=== PATIENT | male | born 1945 | race Caucasian/White ===

== ENCOUNTER 2021-01-11 11:02 | Inpatient (IN) ==
[2021-01-11] MEDS ORDERED: Isovue-370 500 ML BOTTLE IVP ONE (11:16)
[2021-01-11 11:32] LABS: Hematocrit 38.3 % (37.5-50.1); Mean Corpuscular HGB Conc 33.9 g/dL (31.6-35.5); Mean Corpuscular Volume 106.1 fL (83.0-100.0); Red Blood Count 3.61 M/mcL (4.19-5.50); Red Cell Distribution Width 12.4 % (11.5-14.5)
[2021-01-11 11:34] LABS: Immature Platelets 1.4 % (1.1-6.1); Mean Platelet Volume 8.9 fL (9.4-12.4); White Blood Count 2.8 K/mcL (4.3-11.1)
[2021-01-11 11:38] LABS: INR 1.2; Prothrombin Time 13.5 Seconds (9.4-12.1)
[2021-01-11 11:41] LABS: Activated Partial Thrombo Time 34.5 Seconds (26.0-36.0)
[2021-01-11 11:49] LABS: BUN/Creatinine Ratio 31 (6-26); Blood Urea Nitrogen 29 mg/dL (8-23); Calcium 9.7 mg/dL (8.6-10.3); Carbon Dioxide 30 mEq/L (23-29); Chloride 107 mEq/L (98-107); Glucose 187 mg/dL (70-105); Osmolality,Calculated 307 (280-300); Potassium 4.7 mEq/L (3.5-5.1); Sodium 143 mEq/L (136-145); eGFR For African Americans > 60 (> 60); eGFR For Non-African Americans > 60 (> 60)
[2021-01-11] MEDS ORDERED: Gadolinium Contrast Agent (WT Based) IV PRN (11:49)
[2021-01-11 11:50] LABS: Troponin I < 0.03 ng/mL (< 0.04)
[2021-01-11 12:07] LABS: Alanine Aminotransferase 24 Units/L (7-52); Albumin 3.8 g/dL (3.5-5.7); Albumin/Globulin Ratio 1.5 (1.1-2.2); Alkaline Phosphatase 135 Units/L (34-104); Aspartate Amino Transferase 30 Units/L (13-39); Bilirubin,Direct 0.3 mg/dL (0.0-0.2); Bilirubin,Indirect 0.8 mg/dL (0.0-1.0); Bilirubin,Total 1.1 mg/dL (0.3-1.0); Globulin 2.5 g/dL (2.4-3.5); Total Protein 6.3 g/dL (6.4-8.9)
[2021-01-11] MEDS ORDERED: GADOBUTROL 30 MMOL/30 ML VIAL IVP ONE (12:26)
[2021-01-11] MEDS ORDERED: Lactulose Oral Soln 20 GM/30 ML UDC PO ONE (13:10)
[2021-01-11] MEDS ORDERED: Perflutren Lipid Microsphere 1.3 ML in 0.9 % Sodium Chloride 8.7 ML IVP PRN (13:58)
[2021-01-11 14:40] LABS: Bilirubin,Urine Negative (Negative); Blood,Urine Negative (Negative); Clarity,Urine Clear (Clear); Color,Urine Yellow (Yellow); Glucose,Urine (UA) 70 mg/dL (Normal); Ketones,Urine Negative (Negative); Leukocyte Esterase,Urine Negative (Negative); Mucus,Urine Few per lpf (None-Few); Nitrite,Urine Negative (Negative); Protein,Urine Negative (Neg-Trace); RBC,Urine 0-3 per hpf (0-3); Renal Epithelial Cells,Urine Few per hpf (None-Few); Specific Gravity,Urine 1.025 (1.010-1.025); Squamous Epithelial Cell,Urine Few per hpf (None-Few); Transitional Epi Cells,Urine Few per hpf (None-Few); WBC,Urine 0-3 per hpf (0-3)
[2021-01-11] MEDS ORDERED: Naloxone 0.4 MG/ML INJ IVP PRN (14:51)
[2021-01-11] MEDS ORDERED: Ondansetron 4 MG/2 ML VIAL IVP PRN (14:51)
[2021-01-11] MEDS ORDERED: D5% in Water 1,000 ML IVC PRN (14:53)
[2021-01-11] MEDS ORDERED: Dextrose Gel 15 GM/37.5 ML TUBE PO PRN ×2 (14:53)
[2021-01-11] MEDS ORDERED: *HR* Dextrose 50 % in Water (Syg) 50 ML SYRINGE IVP PRN (14:53)
[2021-01-11] MEDS ORDERED: Ipratropium/Albuterol Neb 3 ML IH PRN (14:54)
[2021-01-11 15:06] LABS: Amphetamine Screen,Urine Negative ng/mL (Cutoff=1000); Barbiturate Screen,Urine Negative ng/mL (Cutoff=200); Benzodiazepines Screen,Urine Negative ng/mL (Cutoff=200); Cannabinoid Screen,Urine Positive ng/mL (Cutoff = 50); Cocaine Screen,Urine Negative ng/mL (Cutoff= 300); Opiate Screen,Urine Negative ng/mL (Cutoff=300); Phencyclidine Screen,Urine Negative ng/mL (Cutoff=25)
[2021-01-11] MEDS ORDERED: *HR* Labetalol 20 MG/4 ML SYRINGE IVP PRN (15:16)
[2021-01-11] MEDS ORDERED: Lactulose 200 GM, Sodium Chloride IRRigation 700 ML RC ONE ×2 (16:00→21:00)
[2021-01-11] MEDS: Insulin LISPRO 300 UNITS/3 ML VIAL SUBQ SCH (17:33)
[2021-01-11 18:32] LABS: Ethanol < 10 mg/dL (Less than 10); Troponin I < 0.03 ng/mL (< 0.04)
[2021-01-12] MEDS ORDERED: Lactulose Oral Soln 20 GM/30 ML UDC PO ONE ×2 (00:30→01:30)
[2021-01-12] MEDS: Insulin LISPRO 300 UNITS/3 ML VIAL SUBQ SCH ×5 (00:34→21:42)
[2021-01-12 00:52] LABS: Basophils % 0.3 %; Hemoglobin 12.2 g/dL (12.9-16.9); Immature Granulocytes % 0.3 % (0-4); Mean Corpuscular Volume 104.8 fL (83.0-100.0)
[2021-01-12 00:53] LABS: Eosinophils # 0.1 K/mcL (0.0-0.6); Eosinophils % 2.1 %; Hematocrit 35.1 % (37.5-50.1); Lymphocytes % 24.9 %; Mean Corpuscular HGB Conc 34.8 g/dL (31.6-35.5); Mean Corpuscular Hemoglobin 36.4 pg (28.0-33.3); Mean Platelet Volume 8.7 fL (9.4-12.4); Monocytes # 0.3 K/mcL (0.0-1.3); Monocytes % 8.6 %; Neutrophils # 2.2 K/mcL (1.6-8.9); Platelet Count 101 K/mcL (140-400); Red Blood Count 3.35 M/mcL (4.19-5.50); Red Cell Distribution Width 12.4 % (11.5-14.5); Segmented Neutrophils % 63.8 %; White Blood Count 3.4 K/mcL (4.3-11.1)
[2021-01-12 00:55] LABS: Lymphocytes # 0.9 K/mcL (0.6-4.6)
[2021-01-12 00:59] LABS: INR 1.2; Prothrombin Time 13.7 Seconds (9.4-12.1)
[2021-01-12 01:17] LABS: Alanine Aminotransferase 23 Units/L (7-52); Albumin 3.2 g/dL (3.5-5.7); Albumin/Globulin Ratio 1.5 (1.1-2.2); Alkaline Phosphatase 110 Units/L (34-104); Aspartate Amino Transferase 33 Units/L (13-39); BUN/Creatinine Ratio 31 (6-26); Bilirubin,Direct 0.4 mg/dL (0.0-0.2); Bilirubin,Indirect 1.2 mg/dL (0.0-1.0); Bilirubin,Total 1.6 mg/dL (0.3-1.0); Blood Urea Nitrogen 23 mg/dL (8-23); Calcium 8.9 mg/dL (8.6-10.3); Carbon Dioxide 26 mEq/L (23-29); Chloride 107 mEq/L (98-107); Chol/HDL Ratio 2.2 (0-4.9); Cholesterol 103 mg/dL (< 200); Globulin 2.2 g/dL (2.4-3.5); Glucose 134 mg/dL (70-105); HDL Cholesterol 46 mg/dL (40-59); LDL Cholesterol,Calculated 45 mg/dL (< 100); Magnesium 1.7 mg/dL (1.6-2.6); Osmolality,Calculated 298 (280-300); Potassium 3.9 mEq/L (3.5-5.1); Sodium 141 mEq/L (136-145); Total Protein 5.4 g/dL (6.4-8.9); Triglycerides 62 mg/dL (< 150); eGFR For African Americans > 60 (> 60); eGFR For Non-African Americans > 60 (> 60)
[2021-01-12 01:24] LABS: Estimated Average Glucose 128 mg/dl; Hemoglobin A1C 6.1 %
[2021-01-12 01:29] LABS: Thyroid Stimulating Hormone 1.416 mcIU/mL (0.340-5.600)
[2021-01-12] MEDS ORDERED: Lactulose Oral Soln 20 GM/30 ML UDC PO SCH ×2 (09:00→21:00)
[2021-01-12] MEDS: Aspirin Enteric Coated 81 MG Tablet PO SCH (10:28)
[2021-01-12] MEDS: Lactulose Oral Soln 20 GM/30 ML UDC PO SCH ×2 (14:46→21:43)
[2021-01-12] MEDS: Budesonide/Formoterol 80/4.5 1 PUFF INH IH SCH (21:06)
[2021-01-12] MEDS: hydrOXYzine pamoate 25 MG CAPSULE PO PRN (23:15)
[2021-01-12] MEDS: Baclofen 10 MG TABLET PO SCH (23:15)
[2021-01-13 01:46] LABS: Basophils % 0.3 %; Immature Granulocytes % 0.3 % (0-4); Mean Platelet Volume 8.7 fL (9.4-12.4)
[2021-01-13 01:48] LABS: Eosinophils # 0.1 K/mcL (0.0-0.6); Eosinophils % 1.8 %; Hematocrit 33.7 % (37.5-50.1); Hemoglobin 11.7 g/dL (12.9-16.9); Immature Platelets 1.1 % (1.1-6.1); Lymphocytes # 0.9 K/mcL (0.6-4.6); Lymphocytes % 27.4 %; Mean Corpuscular HGB Conc 34.7 g/dL (31.6-35.5); Mean Corpuscular Hemoglobin 36.6 pg (28.0-33.3); Mean Corpuscular Volume 105.3 fL (83.0-100.0); Monocytes # 0.3 K/mcL (0.0-1.3); Monocytes % 10.3 %; Red Cell Distribution Width 12.2 % (11.5-14.5); Segmented Neutrophils % 59.9 %; White Blood Count 3.3 K/mcL (4.3-11.1)
[2021-01-13 01:52] LABS: Platelet Count 99 K/mcL (140-400)
[2021-01-13 02:03] LABS: Alanine Aminotransferase 22 Units/L (7-52); Albumin/Globulin Ratio 1.4 (1.1-2.2); Alkaline Phosphatase 121 Units/L (34-104); Aspartate Amino Transferase 33 Units/L (13-39); BUN/Creatinine Ratio 30 (6-26); Bilirubin,Direct 0.2 mg/dL (0.0-0.2); Bilirubin,Indirect 0.8 mg/dL (0.0-1.0); Blood Urea Nitrogen 26 mg/dL (8-23); Calcium 8.9 mg/dL (8.6-10.3); Carbon Dioxide 24 mEq/L (23-29); Chloride 107 mEq/L (98-107); Globulin 2.2 g/dL (2.4-3.5); Glucose 219 mg/dL (70-105); Magnesium 1.7 mg/dL (1.6-2.6); Osmolality,Calculated 297 (280-300); Sodium 138 mEq/L (136-145); Total Protein 5.2 g/dL (6.4-8.9); eGFR For African Americans > 60 (> 60); eGFR For Non-African Americans > 60 (> 60)
[2021-01-13 02:54] LABS: Troponin I < 0.03 ng/mL (< 0.04)
[2021-01-13] MEDS ORDERED: Lactulose 200 GM, Sodium Chloride IRRigation 700 ML RC ONE (07:35)
[2021-01-13] MEDS: Aspirin Enteric Coated 81 MG Tablet PO SCH (07:46)
[2021-01-13] MEDS: Insulin LISPRO 300 UNITS/3 ML VIAL SUBQ SCH ×4 (07:46→20:42)
[2021-01-13] MEDS: Folic Acid 1 MG TABLET PO SCH (07:47)
[2021-01-13] MEDS: Budesonide/Formoterol 80/4.5 1 PUFF INH IH SCH ×2 (07:58→20:47)
[2021-01-13] MEDS: Lactulose Oral Soln 20 GM/30 ML UDC PO SCH ×2 (17:07→20:41)
[2021-01-13] MEDS: Baclofen 10 MG TABLET PO SCH (20:41)
[2021-01-13] MEDS: hydrOXYzine pamoate 25 MG CAPSULE PO PRN (23:45)
[2021-01-14 04:34] LABS: Alanine Aminotransferase 23 Units/L (7-52); Albumin 2.9 g/dL (3.5-5.7); Albumin/Globulin Ratio 1.3 (1.1-2.2); Alkaline Phosphatase 128 Units/L (34-104); Aspartate Amino Transferase 30 Units/L (13-39); BUN/Creatinine Ratio 22 (6-26); Bilirubin,Direct 0.2 mg/dL (0.0-0.2); Bilirubin,Indirect 0.7 mg/dL (0.0-1.0); Bilirubin,Total 0.9 mg/dL (0.3-1.0); Blood Urea Nitrogen 21 mg/dL (8-23); Calcium 8.5 mg/dL (8.6-10.3); Carbon Dioxide 25 mEq/L (23-29); Chloride 106 mEq/L (98-107); Globulin 2.2 g/dL (2.4-3.5); Glucose 223 mg/dL (70-105); Osmolality,Calculated 294 (280-300); Potassium 4.3 mEq/L (3.5-5.1); Sodium 137 mEq/L (136-145); Total Protein 5.1 g/dL (6.4-8.9); eGFR For African Americans > 60 (> 60); eGFR For Non-African Americans > 60 (> 60)
[2021-01-14] MEDS: Folic Acid 1 MG TABLET PO SCH (08:50)
[2021-01-14] MEDS: Aspirin Enteric Coated 81 MG Tablet PO SCH (08:50)
[2021-01-14] MEDS: Lactulose Oral Soln 20 GM/30 ML UDC PO SCH ×3 (08:50→21:59)
[2021-01-14] MEDS: Insulin LISPRO 300 UNITS/3 ML VIAL SUBQ SCH ×4 (08:50→22:00)
[2021-01-14] MEDS: Budesonide/Formoterol 80/4.5 1 PUFF INH IH SCH ×2 (11:18→20:18)
[2021-01-14] MEDS: Furosemide 20 MG TABLET PO SCH (14:17)
[2021-01-14] MEDS ORDERED: Fluticasone Propionate Nasal 50 MCG/SPRAY BOTTLE NS SCH (21:00)
[2021-01-14] MEDS: Baclofen 10 MG TABLET PO SCH (21:59)
[2021-01-15 04:17] LABS: Basophils % 0.3 %; Hemoglobin 11.2 g/dL (12.9-16.9); Immature Granulocytes % 0.3 % (0-4); Mean Corpuscular Hemoglobin 35.6 pg (28.0-33.3); Red Blood Count 3.15 M/mcL (4.19-5.50)
[2021-01-15 04:20] LABS: Eosinophils # 0.1 K/mcL (0.0-0.6); Eosinophils % 2.3 %; Immature Platelets 1.6 % (1.1-6.1); Lymphocytes # 0.8 K/mcL (0.6-4.6); Lymphocytes % 26.9 %; Mean Corpuscular HGB Conc 33.9 g/dL (31.6-35.5); Mean Corpuscular Volume 104.8 fL (83.0-100.0); Mean Platelet Volume 8.7 fL (9.4-12.4); Monocytes # 0.3 K/mcL (0.0-1.3); Monocytes % 10.2 %; Red Cell Distribution Width 12.4 % (11.5-14.5); White Blood Count 3.1 K/mcL (4.3-11.1)
[2021-01-15 04:25] LABS: Neutrophils # 1.9 K/mcL (1.6-8.9); Platelet Count 93 K/mcL (140-400)
[2021-01-15 04:26] LABS: INR 1.2; Prothrombin Time 13.1 Seconds (9.4-12.1)
[2021-01-15 04:41] LABS: Alanine Aminotransferase 23 Units/L (7-52); Albumin/Globulin Ratio 1.4 (1.1-2.2); Alkaline Phosphatase 147 Units/L (34-104); Aspartate Amino Transferase 29 Units/L (13-39); BUN/Creatinine Ratio 22 (6-26); Bilirubin,Direct 0.2 mg/dL (0.0-0.2); Bilirubin,Indirect 0.5 mg/dL (0.0-1.0); Bilirubin,Total 0.7 mg/dL (0.3-1.0); Blood Urea Nitrogen 20 mg/dL (8-23); Calcium 8.7 mg/dL (8.6-10.3); Carbon Dioxide 26 mEq/L (23-29); Chloride 107 mEq/L (98-107); Globulin 2.1 g/dL (2.4-3.5); Glucose 258 mg/dL (70-105); Osmolality,Calculated 295 (280-300); Potassium 4.3 mEq/L (3.5-5.1); Sodium 137 mEq/L (136-145); Total Protein 5.1 g/dL (6.4-8.9); eGFR For African Americans > 60 (> 60); eGFR For Non-African Americans > 60 (> 60)
[2021-01-15] MEDS: Lactulose Oral Soln 20 GM/30 ML UDC PO SCH (08:45)
[2021-01-15] MEDS: Furosemide 20 MG TABLET PO SCH (08:45)
[2021-01-15] MEDS: Folic Acid 1 MG TABLET PO SCH (08:46)
[2021-01-15] MEDS: Aspirin Enteric Coated 81 MG Tablet PO SCH (08:52)
[2021-01-15] MEDS: Insulin LISPRO 300 UNITS/3 ML VIAL SUBQ SCH (08:53)
[2021-01-15] MEDS ORDERED: Insulin DETEMIR 100 UNIT/ML X5UNITS SUBQ SCH (09:00)
[2021-01-15] MEDS ORDERED: Metoprolol XL (24 HR) Succ 25 MG TAB.ER.24H PO SCH (09:00)
[2021-01-15 09:52] VITALS: BP 112/70; PULSE 88; TEMP 97.8; O2SAT 96
[2021-01-15] MEDS ORDERED: Tiotropium 10 INH DOSE IH SCH (10:00)
[2021-01-15] MEDS: Budesonide/Formoterol 80/4.5 1 PUFF INH IH SCH (10:45)
== END 2021-01-15 13:55 | disposition home or self-care (01) | DRG 441 ==
LOC: EMEROOARM 11:02 → 3ANU 11:02 → SUATTDRO 14:41 → 3ANU 15:47
PROVIDERS: ADMIT Pharmacist; ATTEND Internal Medicine

== ENCOUNTER 2022-01-30 19:11 | Inpatient (IN) ==
[2022-01-30 19:58] LABS: Eosinophils % 0.5 %; Immature Granulocytes % 0.5 % (0-4); Red Cell Distribution Width 15.9 % (11.5-14.5)
[2022-01-30 20:00] LABS: Hematocrit 16.7 % (37.5-50.1); Immature Platelets 3.8 % (1.1-6.1); Lymphocytes # 0.1 K/mcL (0.6-4.6); Lymphocytes % 6.1 %; Mean Corpuscular HGB Conc 30.5 g/dL (31.6-35.5); Mean Corpuscular Hemoglobin 35.4 pg (28.0-33.3); Monocytes # 0.1 K/mcL (0.0-1.3); Neutrophils # 1.8 K/mcL (1.6-8.9); Red Blood Count 1.44 M/mcL (4.19-5.50); Segmented Neutrophils % 88.9 %
[2022-01-30] MEDS ORDERED: Vancomycin 1,250 MG/262.5 ML IV.SOLN IVPB ONE (20:00)
[2022-01-30] MEDS ORDERED: Piperacillin/Tazobactam 3.375 GM in 0.9 % Sodium Chloride Mini Bag 100 ML IVPB ONE (20:00)
[2022-01-30] MEDS ORDERED: 0.9 % Sodium Chloride 1,000 ML IVC ONE (20:11)
[2022-01-30 20:15] LABS: VBG HCO3 27 mEq/L (21-27); VBG PCO2 82 mmHg (41-51); VBG PH 7.12 pH Units (7.32-7.42); VBG PO2 189 mmHg (25-50)
[2022-01-30 20:19] LABS: INR 1.1; Prothrombin Time 12.5 Seconds (9.4-12.1)
[2022-01-30 20:34] LABS: Alanine Aminotransferase 74 Units/L (7-52); Albumin 3.8 g/dL (3.5-5.7); Albumin/Globulin Ratio 1.7 (1.1-2.2); Alkaline Phosphatase 206 Units/L (34-104); Aspartate Amino Transferase 121 Units/L (13-39); BUN/Creatinine Ratio 16 (6-26); Bilirubin,Direct 0.3 mg/dL (0.0-0.2); Bilirubin,Indirect 0.6 mg/dL (0.0-1.0); Bilirubin,Total 0.9 mg/dL (0.3-1.0); Blood Urea Nitrogen 32 mg/dL (8-23); Calcium 9.3 mg/dL (8.6-10.3); Carbon Dioxide 25 mEq/L (23-29); Chloride 110 mEq/L (98-107); Globulin 2.2 g/dL (2.4-3.5); Glucose 153 mg/dL (70-105); Lipase 53 Units/L (11-82); Magnesium 2.5 mg/dL (1.6-2.6); Osmolality,Calculated 308 (280-300); Phosphorous 3.4 mg/dL (2.7-4.5); Potassium 4.3 mEq/L (3.5-5.1); Sodium 144 mEq/L (136-145); Troponin I < 0.03 ng/mL (< 0.04)
[2022-01-30 20:45] LABS: Hemoglobin 5.1 g/dL (12.9-16.9)
[2022-01-30 20:46] LABS: Hypochromasia Present (Not Present); Microcytosis Present (Not Present); Platelet Count 19 K/mcL (140-400); Platelet Estimate Marked Decrease (Normal)
[2022-01-30 21:34] LABS: VBG HCO3 28 mEq/L (21-27); VBG PCO2 76 mmHg (41-51); VBG PH 7.18 pH Units (7.32-7.42); VBG PO2 189 mmHg (25-50)
[2022-01-30] MEDS ORDERED: 0.9 % Sodium Chloride 500 ML IVC ONE (21:47)
[2022-01-30 22:15] LABS: Lactate Dehydrogenase 160 Units/L (140-271)
[2022-01-30 22:24] LABS: Bilirubin,Urine Negative (Negative); Blood,Urine Negative (Negative); Clarity,Urine Clear (Clear); Color,Urine Yellow (Yellow); Glucose,Urine (UA) Normal (Normal); Hyaline Casts,Urine Few per lpf (None Seen); Ketones,Urine Trace mg/dL (Negative); Leukocyte Esterase,Urine Negative (Negative); Mucus,Urine Few per lpf (None-Few); Nitrite,Urine Negative (Negative); PH,Urine 5.5 pH Units (5.0-8.0); Protein,Urine 30 mg/dL (Neg-Trace); RBC,Urine 0-3 per hpf (0-3); Specific Gravity,Urine 1.025 (1.010-1.025); Squamous Epithelial Cell,Urine Few per hpf (None-Few); Urobilinogen,Urine Normal (Normal); WBC,Urine 0-3 per hpf (0-3)
[2022-01-30] MEDS ORDERED: 0.9 % Sodium Chloride 250 ML ONE (22:26)
[2022-01-30] MEDS ORDERED: 0.9 % Sodium Chloride 1,000 ML ONE (22:30)
[2022-01-30 23:34] LABS: ABG Base Excess -5 mEq/L (-2 to 3); ABG HCO3 25 mEq/L (21-27); ABG Oxygen Saturation 93 % (95-98); ABG PCO2 72 mmHg (35-45); ABG PH 7.15 pH Units (7.32-7.45); ABG PO2 90 mmHg (85-104); ABG TCO2 27 mEq/L (20-26); Blood Gas Pressure Support 7 cm H2O
[2022-01-30] MEDS ORDERED: Naloxone 0.4 MG/ML INJ IVP PRN (23:47)
[2022-01-30] MEDS ORDERED: D5% in Water 1,000 ML IVC PRN (23:47)
[2022-01-30] MEDS ORDERED: *HR* Dextrose 50 % in Water (Syg) 50 ML SYRINGE IVP PRN (23:47)
[2022-01-30] MEDS ORDERED: Dextrose Gel 15 GM/37.5 ML TUBE PO PRN ×2 (23:47)
[2022-01-31] MEDS ORDERED: Cefepime HCl 2,000 MG in 0.9 % Sodium Chloride 10 ML IVP SCH
[2022-01-31 00:05] LABS: Hematocrit 28.4 % (37.5-50.1); Mean Corpuscular Hemoglobin 34.9 pg (28.0-33.3); Mean Corpuscular Volume 112.7 fL (83.0-100.0); Mean Platelet Volume 9.7 fL (9.4-12.4); Monocytes # 0.1 K/mcL (0.0-1.3); Red Blood Count 2.52 M/mcL (4.19-5.50); Red Cell Distribution Width 15.9 % (11.5-14.5); White Blood Count 2.5 K/mcL (4.3-11.1)
[2022-01-31 00:06] LABS: Hemoglobin 8.8 g/dL (12.9-16.9)
[2022-01-31 00:07] LABS: Platelet Count 28 K/mcL (140-400)
[2022-01-31 00:31] LABS: Basophilic Stippling 1+ (Not Present); Basophils # 0.1 K/mcL (0.0-0.2); Lymphocytes # 0.3 K/mcL (0.6-4.6); Macrocytosis Present (Not Present); Neutrophils # 2.2 K/mcL (1.6-8.9)
[2022-01-31 00:32] LABS: Platelet Estimate Marked Decrease (Normal)
[2022-01-31] MEDS: Insulin LISPRO 300 UNITS/3 ML VIAL SUBQ SCH ×4 (01:30→19:47)
[2022-01-31] MEDS: Cefepime HCl 2,000 MG in 0.9 % Sodium Chloride 10 ML IVP SCH ×2 (01:30→19:34)
[2022-01-31 01:52] LABS: Basophils % 0.4 %; Eosinophils % 0.4 %; Hemoglobin 9.9 g/dL (12.9-16.9); Immature Granulocytes % 0.4 % (0-4); Immature Platelets 5.3 % (1.1-6.1); Lymphocytes # 0.2 K/mcL (0.6-4.6); Lymphocytes % 6.7 %; Mean Corpuscular HGB Conc 31.9 g/dL (31.6-35.5); Mean Corpuscular Hemoglobin 34.5 pg (28.0-33.3); Mean Platelet Volume 9.3 fL (9.4-12.4); Monocytes # 0.2 K/mcL (0.0-1.3); Monocytes % 6.7 %; Neutrophils # 2.3 K/mcL (1.6-8.9); Red Blood Count 2.87 M/mcL (4.19-5.50); Red Cell Distribution Width 17.5 % (11.5-14.5); Segmented Neutrophils % 85.4 %; White Blood Count 2.7 K/mcL (4.3-11.1)
[2022-01-31 01:54] LABS: Platelet Count 37 K/mcL (140-400)
[2022-01-31 03:05] LABS: ABG Base Excess 1 mEq/L (-2 to 3); ABG HCO3 28 mEq/L (21-27); ABG Oxygen Saturation 96 % (95-98); ABG PCO2 61 mmHg (35-45); ABG PH 7.27 pH Units (7.32-7.45); ABG PO2 93 mmHg (85-104); ABG TCO2 30 mEq/L (20-26); Blood Gas Modality AVAPS; Blood Gas VT 500 cc
[2022-01-31 03:43] LABS: Estimated Average Glucose 120 mg/dl; Hemoglobin A1C 5.8 %
[2022-01-31 03:53] LABS: Albumin 3.3 g/dL (3.5-5.7); Albumin/Globulin Ratio 1.6 (1.1-2.2); Bilirubin,Total 1.3 mg/dL (0.3-1.0); Calcium 8.7 mg/dL (8.6-10.3); Globulin 2.1 g/dL (2.4-3.5); Potassium 4.5 mEq/L (3.5-5.1); Total Protein 5.4 g/dL (6.4-8.9)
[2022-01-31 04:04] LABS: Procalcitonin 0.12 ng/mL (0.00-0.15)
[2022-01-31 04:28] LABS: Folate > 22.3 ng/mL (3.0-16.0); Vitamin B12 981 pg/mL (250-1100)
[2022-01-31 07:03] LABS: Influenza A PCR Negative (Negative); Influenza B PCR Negative (Negative); Resp. Syncytial Virus PCR Negative (Negative); SARS-CoV-2 by PCR (In House) Negative (Negative)
[2022-01-31] MEDS ORDERED: Pantoprazole 40 MG VIAL IVP SCH (11:30)
[2022-01-31] MEDS ORDERED: Lactulose Oral Soln 20 GM/30 ML UDC PO SCH (12:00)
[2022-01-31] MEDS ORDERED: Scopolamine Patch 1.5 MG PATCH.TD72 TD ONE (14:20)
[2022-01-31] MEDS ORDERED: Lactulose 200 GM, Sodium Chloride IRRigation 700 ML RC ONE (16:30)
[2022-01-31] MEDS ORDERED: Ringers Solution, Lactated 1,000 ML IVC ONE (17:19)
[2022-01-31] MEDS: Levothyroxine Sodium 100 MCG VIAL IVP SCH (17:38)
[2022-01-31 17:59] LABS: Thyroid Stimulating Hormone 2.309 mcIU/mL (0.340-5.600)
[2022-01-31 18:33] LABS: Basophils % 0.1 %; Eosinophils % 0.3 %; Hematocrit 33.6 % (37.5-50.1); Hemoglobin 10.5 g/dL (12.9-16.9); Immature Granulocytes % 0.3 % (0-4); Immature Platelets 4.7 % (1.1-6.1); Lymphocytes # 0.4 K/mcL (0.6-4.6); Lymphocytes % 6.1 %; Mean Corpuscular HGB Conc 31.3 g/dL (31.6-35.5); Mean Corpuscular Hemoglobin 34.2 pg (28.0-33.3); Mean Corpuscular Volume 109.4 fL (83.0-100.0); Monocytes # 0.5 K/mcL (0.0-1.3); Monocytes % 6.9 %; Neutrophils # 5.9 K/mcL (1.6-8.9); Red Blood Count 3.07 M/mcL (4.19-5.50); Red Cell Distribution Width 17.8 % (11.5-14.5); Segmented Neutrophils % 86.3 %; White Blood Count 6.8 K/mcL (4.3-11.1)
[2022-01-31 18:46] LABS: Platelet Count 29 K/mcL (140-400)
[2022-01-31] MEDS: Norepinephrine 4 MG/254 ML IV.SOLN IVC SCH (19:31)
[2022-01-31] MEDS ORDERED: Vancomycin 1,250 MG/262.5 ML IV.SOLN IVPB ONE (21:34)
[2022-02-01] MEDS: Insulin LISPRO 300 UNITS/3 ML VIAL SUBQ SCH ×5 (00:10→22:23)
[2022-02-01] MEDS: Cefepime HCl 2,000 MG in 0.9 % Sodium Chloride 10 ML IVP SCH ×2 (02:03→11:27)
[2022-02-01 03:44] LABS: Basophils % 0.1 %; Hemoglobin 10.5 g/dL (12.9-16.9); Mean Platelet Volume 10.6 fL (9.4-12.4); Monocytes % 5.6 %; Red Cell Distribution Width 17.7 % (11.5-14.5)
[2022-02-01 03:46] LABS: Eosinophils % 0.4 %; Hematocrit 32.8 % (37.5-50.1); Immature Granulocytes % 0.3 % (0-4); Lymphocytes # 0.5 K/mcL (0.6-4.6); Lymphocytes % 6.6 %; Mean Corpuscular Volume 109.3 fL (83.0-100.0); Monocytes # 0.4 K/mcL (0.0-1.3); White Blood Count 7.2 K/mcL (4.3-11.1)
[2022-02-01 03:51] LABS: Neutrophils # 6.3 K/mcL (1.6-8.9)
[2022-02-01 03:53] LABS: Platelet Count 27 K/mcL (140-400)
[2022-02-01 04:06] LABS: Calcium 8.9 mg/dL (8.6-10.3)
[2022-02-01] MEDS: Levothyroxine Sodium 100 MCG VIAL IVP SCH (08:10)
[2022-02-01] MEDS ORDERED: 0.9 % Sodium Chloride 1,000 ML IVC SCH (08:45)
[2022-02-01] MEDS ORDERED: Pantoprazole 40 MG VIAL IVP SCH (09:00)
[2022-02-01] MEDS ORDERED: Lactulose Oral Soln 20 GM/30 ML UDC PO SCH ×2 (11:15→21:00)
[2022-02-01] MEDS: Sodium Bicarbonate 75 MEQ in 0.45 % Sodium Chloride 1,000 ML IVC SCH (13:10)
[2022-02-01] MEDS: Lactulose Oral Soln 20 GM/30 ML UDC PO SCH ×2 (13:55→18:14)
[2022-02-01] MEDS ORDERED: Ipratropium/Albuterol Neb 3 ML IH PRN (14:23)
[2022-02-01] MEDS ORDERED: Tetracaine/Benzocaine/Butamben 1 SPRAY AEROSOL MM ONE (15:11)
[2022-02-01] MEDS: Norepinephrine 4 MG/254 ML IV.SOLN IVC SCH ×2 (18:14→19:05)
[2022-02-01 20:33] LABS: Protein/Creatinine Ratio,Urine 1.13 mg/mg (0.00-0.20); Sodium, Urine 55.4 mEq/L
[2022-02-01] MEDS ORDERED: Vancomycin 1,250 MG/262.5 ML IV.SOLN IVPB ONE (22:00)
[2022-02-02] MEDS ORDERED: Tetracaine/Benzocaine/Butamben 1 SPRAY AEROSOL MM PRN ×2 (01:20→17:41)
[2022-02-02] MEDS: Sodium Bicarbonate 75 MEQ in 0.45 % Sodium Chloride 1,000 ML IVC SCH (02:01)
[2022-02-02 02:54] LABS: Basophils % 0.2 %; Eosinophils % 0.8 %; Hemoglobin 10.4 g/dL (12.9-16.9)
[2022-02-02 02:56] LABS: Immature Granulocytes % 0.4 % (0-4); Immature Platelets 4.6 % (1.1-6.1); Lymphocytes # 0.5 K/mcL (0.6-4.6); Mean Corpuscular HGB Conc 31.5 g/dL (31.6-35.5); Mean Corpuscular Volume 107.8 fL (83.0-100.0); Mean Platelet Volume 10.3 fL (9.4-12.4); Monocytes # 0.4 K/mcL (0.0-1.3); Monocytes % 6.9 %; Neutrophils # 4.3 K/mcL (1.6-8.9); Platelet Count 31 K/mcL (140-400); Red Blood Count 3.06 M/mcL (4.19-5.50); Red Cell Distribution Width 17.1 % (11.5-14.5); Segmented Neutrophils % 82.7 %; White Blood Count 5.2 K/mcL (4.3-11.1)
[2022-02-02 03:08] LABS: Albumin 3.2 g/dL (3.5-5.7)
[2022-02-02 03:10] LABS: Potassium 4.6 mEq/L (3.5-5.1)
[2022-02-02] MEDS: Insulin LISPRO 300 UNITS/3 ML VIAL SUBQ SCH ×3 (05:00→19:33)
[2022-02-02] MEDS ORDERED: Tiotropium 10 INH DOSE IH ONE (07:48)
[2022-02-02] MEDS: Lactulose Oral Soln 20 GM/30 ML UDC PO SCH ×3 (07:50→21:29)
[2022-02-02] MEDS ORDERED: Furosemide 40 MG TABLET PO SCH (09:00)
[2022-02-02] MEDS ORDERED: Insulin DETEMIR 100 UNIT/ML X5UNITS SUBQ SCH (09:00)
[2022-02-02] MEDS ORDERED: Folic Acid 1 MG TABLET PO SCH (09:00)
[2022-02-02] MEDS ORDERED: Metoprolol XL (24 HR) Succ 25 MG TAB.ER.24H PO SCH (09:00)
[2022-02-02] MEDS ORDERED: Tiotropium 10 INH DOSE IH SCH (10:00)
[2022-02-02] MEDS ORDERED: *HR* Atropine Sulfate 1 MG/10 ML SYRINGE ONE (12:46)
[2022-02-02] MEDS: Cefepime HCl 2,000 MG in 0.9 % Sodium Chloride 10 ML IVP SCH ×2 (14:22)
[2022-02-02] MEDS ORDERED: *HR* Dextrose 50 % in Water (Syg) 50 ML SYRINGE IVP PRN (17:41)
[2022-02-02] MEDS ORDERED: Dextrose Gel 15 GM/37.5 ML TUBE PO PRN ×2 (17:41)
[2022-02-02] MEDS ORDERED: Norepinephrine 4 MG/254 ML IV.SOLN IVC SCH (17:41)
[2022-02-02] MEDS ORDERED: Naloxone 0.4 MG/ML INJ IVP PRN (17:41)
[2022-02-02] MEDS ORDERED: D5% in Water 1,000 ML IVC PRN (17:41)
[2022-02-02] MEDS ORDERED: Ipratropium/Albuterol Neb 3 ML IH PRN (17:41)
[2022-02-02] MEDS ORDERED: Lactulose Oral Soln 20 GM/30 ML UDC PO SCH (21:00)
[2022-02-03] MEDS: Cefepime HCl 2,000 MG in 0.9 % Sodium Chloride 10 ML IVP SCH ×3 (00:50→20:14)
[2022-02-03] MEDS: Insulin LISPRO 300 UNITS/3 ML VIAL SUBQ SCH ×5 (00:55→23:16)
[2022-02-03] MEDS: Tiotropium 10 INH DOSE IH SCH (07:52)
[2022-02-03 08:21] LABS: Basophils % 0.2 %; Immature Granulocytes % 0.5 % (0-4); Mean Corpuscular Hemoglobin 34.1 pg (28.0-33.3)
[2022-02-03 08:23] LABS: Eosinophils # 0.1 K/mcL (0.0-0.6); Eosinophils % 1.6 %; Hematocrit 32.7 % (37.5-50.1); Hemoglobin 10.5 g/dL (12.9-16.9); Immature Platelets 2.8 % (1.1-6.1); Lymphocytes # 0.5 K/mcL (0.6-4.6); Lymphocytes % 10.9 %; Mean Corpuscular HGB Conc 32.1 g/dL (31.6-35.5); Mean Corpuscular Volume 106.2 fL (83.0-100.0); Mean Platelet Volume 9.5 fL (9.4-12.4); Monocytes # 0.3 K/mcL (0.0-1.3); Monocytes % 7.9 %; Neutrophils # 3.4 K/mcL (1.6-8.9); Red Blood Count 3.08 M/mcL (4.19-5.50); Red Cell Distribution Width 16.9 % (11.5-14.5); Segmented Neutrophils % 78.9 %; White Blood Count 4.3 K/mcL (4.3-11.1)
[2022-02-03 08:27] LABS: Platelet Count 37 K/mcL (140-400)
[2022-02-03 08:39] LABS: Calcium 8.9 mg/dL (8.6-10.3); Potassium 4.4 mEq/L (3.5-5.1)
[2022-02-03] MEDS ORDERED: Insulin DETEMIR 100 UNIT/ML X5UNITS SUBQ SCH (09:00)
[2022-02-03] MEDS ORDERED: Metoprolol XL (24 HR) Succ 25 MG TAB.ER.24H PO SCH (09:00)
[2022-02-03] MEDS ORDERED: Folic Acid 1 MG TABLET PO SCH (09:00)
[2022-02-03] MEDS ORDERED: Furosemide 20 MG TABLET PO SCH (09:00)
[2022-02-03] MEDS: Lactulose Oral Soln 20 GM/30 ML UDC PO SCH ×2 (09:01→18:47)
[2022-02-03] MEDS ORDERED: Tiotropium 10 INH DOSE IH SCH (10:00)
[2022-02-03] MEDS ORDERED: Furosemide 20 MG/2 ML VIAL IVP SCH (10:15)
[2022-02-03] MEDS: D5% in Water 1,000 ML IVC SCH (11:11)
[2022-02-03] MEDS: MetroNIDAZOLE 500 MG/100 ML 500 MG/100 ML BAG IVPB SCH ×2 (12:52→20:14)
[2022-02-03] MEDS: Glycopyrrolate 0.2 MG/ML VIAL IVP PRN (18:50)
[2022-02-03] MEDS: Scopolamine Patch 1.5 MG PATCH.TD72 TD SCH (18:50)
[2022-02-03] MEDS ORDERED: Lactulose Oral Soln 20 GM/30 ML UDC RC SCH (21:00)
[2022-02-03] MEDS: Lactulose 200 GM, Sodium Chloride IRRigation 700 ML RC SCH (21:42)
[2022-02-04 03:01] LABS: Eosinophils % 0.8 %; Immature Granulocytes % 0.4 % (0-4); Mean Corpuscular HGB Conc 32.4 g/dL (31.6-35.5)
[2022-02-04 03:03] LABS: Basophils % 0.2 %; Hematocrit 31.8 % (37.5-50.1); Hemoglobin 10.3 g/dL (12.9-16.9); Immature Platelets 3.1 % (1.1-6.1); Lymphocytes # 0.6 K/mcL (0.6-4.6); Lymphocytes % 11.6 %; Mean Corpuscular Hemoglobin 34.4 pg (28.0-33.3); Mean Corpuscular Volume 106.4 fL (83.0-100.0); Mean Platelet Volume 9.8 fL (9.4-12.4); Monocytes # 0.3 K/mcL (0.0-1.3); Monocytes % 6.9 %; Neutrophils # 3.9 K/mcL (1.6-8.9); Platelet Count 34 K/mcL (140-400); Red Blood Count 2.99 M/mcL (4.19-5.50); Red Cell Distribution Width 16.6 % (11.5-14.5); Segmented Neutrophils % 80.1 %; White Blood Count 4.9 K/mcL (4.3-11.1)
[2022-02-04 03:09] LABS: INR 1.3; Prothrombin Time 14.3 Seconds (9.4-12.1)
[2022-02-04] MEDS: MetroNIDAZOLE 500 MG/100 ML 500 MG/100 ML BAG IVPB SCH ×3 (03:09→20:35)
[2022-02-04] MEDS: D5% in Water 1,000 ML IVC SCH ×2 (03:10→09:57)
[2022-02-04 03:20] LABS: VBG Ionized Calcium 1.12 mmol/L (1.15-1.35)
[2022-02-04 03:25] LABS: Albumin/Globulin Ratio 1.4 (1.1-2.2); Bilirubin,Direct 0.4 mg/dL (0.0-0.2); Bilirubin,Indirect 1.1 mg/dL (0.0-1.0); Bilirubin,Total 1.5 mg/dL (0.3-1.0); Globulin 2.2 g/dL (2.4-3.5); Phosphorous 3.6 mg/dL (2.7-4.5); Potassium 4.5 mEq/L (3.5-5.1); Total Protein 5.2 g/dL (6.4-8.9)
[2022-02-04] MEDS: Insulin LISPRO 300 UNITS/3 ML VIAL SUBQ SCH ×4 (06:10→22:46)
[2022-02-04] MEDS: Tiotropium 10 INH DOSE IH SCH (07:16)
[2022-02-04] MEDS: Cefepime HCl 2,000 MG in 0.9 % Sodium Chloride 10 ML IVP SCH ×2 (07:36→20:31)
[2022-02-04] MEDS: Glycopyrrolate 0.2 MG/ML VIAL IVP PRN (07:38)
[2022-02-04] MEDS ORDERED: Insulin DETEMIR 100 UNIT/ML X5UNITS SUBQ SCH (09:00)
[2022-02-04] MEDS ORDERED: Amiodarone Premix 360 MG/200 ML BAG IVC ONE (09:38)
[2022-02-04] MEDS ORDERED: Amiodarone Premix 150 MG/100 ML BAG IVPB ONE (09:38)
[2022-02-04] MEDS ORDERED: *HR* Midazolam HCl 2 MG/2 ML VIAL IVP ONE (10:17)
[2022-02-04] MEDS ORDERED: Ipratropium/Albuterol Neb 3 ML IH ONE (10:32)
[2022-02-04 11:37] LABS: ANA IgG by ELISA NONE DETECTED (None Detected)
[2022-02-04] MEDS: Lactulose 200 GM, Sodium Chloride IRRigation 700 ML RC SCH ×2 (11:45→21:12)
[2022-02-04 13:22] LABS: VBG Ionized Calcium 1.27 mmol/L (1.15-1.35)
[2022-02-04 13:38] LABS: Calcium 8.7 mg/dL (8.6-10.3); Magnesium 1.9 mg/dL (1.6-2.6); Phosphorous 3.7 mg/dL (2.7-4.5); Potassium 4.2 mEq/L (3.5-5.1)
[2022-02-04] MEDS: Albumin Human 5% 12.5 GM/250 ML IV.SOLN IVC SCH ×2 (14:33→19:18)
[2022-02-04] MEDS: Pantoprazole 40 MG VIAL IVP SCH (16:20)
[2022-02-04] MEDS: Amiodarone Premix 360 MG/200 ML BAG IVC SCH (17:06)
[2022-02-05] MEDS: Amiodarone Premix 360 MG/200 ML BAG IVC SCH ×2 (02:06→15:16)
[2022-02-05] MEDS: D5% in Water 1,000 ML IVC SCH (02:06)
[2022-02-05] MEDS: MetroNIDAZOLE 500 MG/100 ML 500 MG/100 ML BAG IVPB SCH ×2 (04:00→16:44)
[2022-02-05 05:17] LABS: VBG Ionized Calcium 1.27 mmol/L (1.15-1.35)
[2022-02-05 05:22] LABS: Basophils % 0.4 %; Monocytes % 9.9 %; Red Blood Count 3.06 M/mcL (4.19-5.50)
[2022-02-05 05:24] LABS: Eosinophils # 0.1 K/mcL (0.0-0.6); Hematocrit 32.5 % (37.5-50.1); Hemoglobin 10.3 g/dL (12.9-16.9); Immature Granulocytes % 0.6 % (0-4); Immature Platelets 3.9 % (1.1-6.1); Lymphocytes # 0.6 K/mcL (0.6-4.6); Lymphocytes % 11.6 %; Mean Corpuscular HGB Conc 31.7 g/dL (31.6-35.5); Mean Corpuscular Hemoglobin 33.7 pg (28.0-33.3); Mean Corpuscular Volume 106.2 fL (83.0-100.0); Mean Platelet Volume 9.6 fL (9.4-12.4); Monocytes # 0.5 K/mcL (0.0-1.3); Neutrophils # 4.1 K/mcL (1.6-8.9); Red Cell Distribution Width 16.7 % (11.5-14.5); Segmented Neutrophils % 75.5 %; White Blood Count 5.4 K/mcL (4.3-11.1)
[2022-02-05 05:31] LABS: INR 1.3; Prothrombin Time 14.8 Seconds (9.4-12.1)
[2022-02-05 05:38] LABS: Platelet Count 37 K/mcL (140-400)
[2022-02-05 05:40] LABS: Albumin 3.3 g/dL (3.5-5.7); Albumin/Globulin Ratio 1.5 (1.1-2.2); Bilirubin,Direct 0.4 mg/dL (0.0-0.2); Bilirubin,Indirect 0.8 mg/dL (0.0-1.0); Bilirubin,Total 1.2 mg/dL (0.3-1.0); Calcium 8.9 mg/dL (8.6-10.3); Globulin 2.2 g/dL (2.4-3.5); Magnesium 2.1 mg/dL (1.6-2.6); Phosphorous 3.6 mg/dL (2.7-4.5); Potassium 3.9 mEq/L (3.5-5.1); Total Protein 5.5 g/dL (6.4-8.9)
[2022-02-05] MEDS: Insulin LISPRO 300 UNITS/3 ML VIAL SUBQ SCH ×3 (06:14→19:27)
[2022-02-05] MEDS ORDERED: 0.9 % Sodium Chloride 250 ML ONE (08:05)
[2022-02-05] MEDS: Cefepime HCl 2,000 MG in 0.9 % Sodium Chloride 10 ML IVP SCH ×2 (08:21→20:26)
[2022-02-05] MEDS: Pantoprazole 40 MG VIAL IVP SCH (08:23)
[2022-02-05] MEDS: Lactulose 200 GM, Sodium Chloride IRRigation 700 ML RC SCH (08:27)
[2022-02-05] MEDS: Tiotropium 10 INH DOSE IH SCH (10:42)
[2022-02-05 11:28] LABS: Serine Protease-3 Antibody 0 AU/mL (0-19)
[2022-02-05 12:52] LABS: Basophils % 0.1 %; Immature Granulocytes % 0.5 % (0-4)
[2022-02-05 12:54] LABS: Eosinophils # 0.1 K/mcL (0.0-0.6); Eosinophils % 1.3 %; Hematocrit 34.8 % (37.5-50.1); Hemoglobin 10.9 g/dL (12.9-16.9); Immature Platelets 3.6 % (1.1-6.1); Lymphocytes # 0.6 K/mcL (0.6-4.6); Lymphocytes % 6.8 %; Mean Corpuscular HGB Conc 31.3 g/dL (31.6-35.5); Mean Corpuscular Volume 108.4 fL (83.0-100.0); Mean Platelet Volume 9.4 fL (9.4-12.4); Monocytes # 0.8 K/mcL (0.0-1.3); Monocytes % 9.4 %; Neutrophils # 7.2 K/mcL (1.6-8.9); Red Blood Count 3.21 M/mcL (4.19-5.50); Red Cell Distribution Width 16.7 % (11.5-14.5); Segmented Neutrophils % 81.9 %; White Blood Count 8.8 K/mcL (4.3-11.1)
[2022-02-05 12:59] LABS: Platelet Count 44 K/mcL (140-400)
[2022-02-05] MEDS ORDERED: Lidocaine -MPF 2% 2 ML VIAL ONE (13:06)
[2022-02-05] MEDS ORDERED: EPHEDrine sulfate 50 MG/10 ML VIAL IVP ONE (13:08)
[2022-02-05] MEDS ORDERED: *HR* Etomidate 40 MG/20 ML VIAL IVP ONE (13:24)
[2022-02-05] MEDS ORDERED: Artificial Tears SOLN 15 ML BOTTLE BOTH EYES PRN (14:30)
[2022-02-05] MEDS ORDERED: Norepinephrine 4 MG/254 ML IV.SOLN IVC ONE (14:35)
[2022-02-05] MEDS ORDERED: D10% in Water 500 ML IVC PRN (14:58)
[2022-02-05] MEDS: Dexmedetomidine HCl 400 MCG/100 ML MLS IVC SCH (15:08)
[2022-02-05] MEDS: FentaNYL (PF) 1,000 MCG/100 ML IV.SOLN IVC SCH (15:09)
[2022-02-05] MEDS ORDERED: *HR* Metoprolol 5 MG/5 ML VIAL IVP PRN (16:37)
[2022-02-05] MEDS: Norepinephrine 4 MG/254 ML IV.SOLN IVC SCH (16:51)
[2022-02-05] MEDS: Artificial Tears SOLN 15 ML BOTTLE BOTH EYES SCH ×2 (16:52→20:26)
[2022-02-05 16:54] LABS: ABG Base Excess 1 mEq/L (-2 to 3); ABG HCO3 27 mEq/L (21-27); ABG Oxygen Saturation 100 % (95-98); ABG PCO2 46 mmHg (35-45); ABG PH 7.37 pH Units (7.32-7.45); ABG PO2 280 mmHg (85-104); ABG TCO2 28 mEq/L (20-26); Blood Gas Modality ASSIST CONTROL; Blood Gas VT 470 cc
[2022-02-05] MEDS ORDERED: Clinimix E 5%-15% SOLUTION 2,000 ML with MVI, adult with vitamin K 10 ML IVC SCH (17:00)
[2022-02-05 19:05] LABS: Alpha 2 Globulin (PEP) 0.51 g/dL (0.48-1.05); Beta Globulin (PEP) 0.52 g/dL (0.48-1.10)
[2022-02-05] MEDS: Chlorhexidine Rinse 15 ML MOUTHWASH MM SCH (20:25)
[2022-02-06] MEDS: FentaNYL (PF) 1,000 MCG/100 ML IV.SOLN IVC SCH ×2 (00:09→07:59)
[2022-02-06] MEDS: Artificial Tears SOLN 15 ML BOTTLE BOTH EYES SCH ×7 (00:09→23:27)
[2022-02-06] MEDS: Lactulose 200 GM, Sodium Chloride IRRigation 700 ML RC SCH ×2 (00:10→08:00)
[2022-02-06] MEDS: Insulin LISPRO 300 UNITS/3 ML VIAL SUBQ SCH ×5 (00:15→23:28)
[2022-02-06 04:16] LABS: Basophils % 0.3 %; Mean Corpuscular HGB Conc 32.8 g/dL (31.6-35.5); Mean Corpuscular Hemoglobin 34.4 pg (28.0-33.3); Mean Corpuscular Volume 104.7 fL (83.0-100.0); Red Cell Distribution Width 16.3 % (11.5-14.5)
[2022-02-06 04:18] LABS: Eosinophils # 0.1 K/mcL (0.0-0.6); Eosinophils % 1.6 %; Hematocrit 33.2 % (37.5-50.1); Hemoglobin 10.9 g/dL (12.9-16.9); Immature Granulocytes % 0.3 % (0-4); Immature Platelets 3.4 % (1.1-6.1); Lymphocytes # 0.5 K/mcL (0.6-4.6); Lymphocytes % 8.2 %; Mean Platelet Volume 10.7 fL (9.4-12.4); Monocytes # 0.5 K/mcL (0.0-1.3); Monocytes % 8.2 %; Neutrophils # 5.2 K/mcL (1.6-8.9); Red Blood Count 3.17 M/mcL (4.19-5.50); Segmented Neutrophils % 81.4 %; White Blood Count 6.4 K/mcL (4.3-11.1)
[2022-02-06 04:21] LABS: Platelet Count 34 K/mcL (140-400)
[2022-02-06 04:27] LABS: INR 1.5
[2022-02-06 04:31] LABS: VBG Ionized Calcium 1.17 mmol/L (1.15-1.35)
[2022-02-06 04:33] LABS: D-Dimer 1609 ng/mLFEU (0-500); Fibrinogen 350 mg/dL (169-393)
[2022-02-06 04:38] LABS: Albumin 3.1 g/dL (3.5-5.7); Albumin/Globulin Ratio 1.5 (1.1-2.2); Bilirubin,Direct 0.4 mg/dL (0.0-0.2); Bilirubin,Total 1.4 mg/dL (0.3-1.0); Calcium 8.8 mg/dL (8.6-10.3); Globulin 2.1 g/dL (2.4-3.5); Magnesium 1.9 mg/dL (1.6-2.6); Phosphorous 3.2 mg/dL (2.7-4.5); Total Protein 5.2 g/dL (6.4-8.9)
[2022-02-06 04:41] LABS: ABG Base Excess 0 mEq/L (-2 to 3); ABG HCO3 24 mEq/L (21-27); ABG Oxygen Saturation 97 % (95-98); ABG PCO2 38 mmHg (35-45); ABG PH 7.41 pH Units (7.32-7.45); ABG PO2 95 mmHg (85-104); ABG TCO2 25 mEq/L (20-26); Blood Gas VT 470 cc
[2022-02-06] MEDS: Dexmedetomidine HCl 400 MCG/100 ML MLS IVC SCH ×2 (04:43→18:08)
[2022-02-06] MEDS: Nystatin POWDER 30 GM BOTTLE TP SCH ×4 (04:44→20:06)
[2022-02-06] MEDS ORDERED: 0.9 % Sodium Chloride 250 ML ONE (04:48)
[2022-02-06] MEDS: Tiotropium 10 INH DOSE IH SCH (07:17)
[2022-02-06] MEDS: Chlorhexidine Rinse 15 ML MOUTHWASH MM SCH ×2 (07:56→20:07)
[2022-02-06] MEDS: Cefepime HCl 2,000 MG in 0.9 % Sodium Chloride 10 ML IVP SCH ×2 (07:56→20:07)
[2022-02-06] MEDS: MetroNIDAZOLE 500 MG/100 ML 500 MG/100 ML BAG IVPB SCH ×4 (07:57→23:28)
[2022-02-06] MEDS: Pantoprazole 40 MG VIAL IVP SCH (07:59)
[2022-02-06 10:47] LABS: IFE Reflexed NOT DONE
[2022-02-06 13:14] LABS: Basophils % 0.3 %; Eosinophils # 0.1 K/mcL (0.0-0.6); Eosinophils % 1.9 %; Hematocrit 27.4 % (37.5-50.1); Immature Granulocytes % 0.6 % (0-4); Lymphocytes # 0.4 K/mcL (0.6-4.6); Lymphocytes % 6.5 %; Mean Corpuscular HGB Conc 32.5 g/dL (31.6-35.5); Mean Corpuscular Volume 104.6 fL (83.0-100.0); Mean Platelet Volume 9.5 fL (9.4-12.4); Monocytes # 0.5 K/mcL (0.0-1.3); Monocytes % 7.7 %; Red Blood Count 2.62 M/mcL (4.19-5.50); Red Cell Distribution Width 16.4 % (11.5-14.5); White Blood Count 6.3 K/mcL (4.3-11.1)
[2022-02-06 13:15] LABS: Hemoglobin 8.9 g/dL (12.9-16.9); Neutrophils # 5.2 K/mcL (1.6-8.9); Platelet Count 36 K/mcL (140-400)
[2022-02-06] MEDS ORDERED: Clinimix E 5%-15% SOLUTION 2,000 ML with MVI, adult with vitamin K 10 ML IVC SCH (17:00)
[2022-02-06 17:16] LABS: Immature Reticulocyte % 14.8 % (11.0-38.0); Retculocyte # 0.03 M/mcL (0.05-0.10)
[2022-02-06 17:18] LABS: Mean Platelet Volume 9.5 fL (9.4-12.4)
[2022-02-06] MEDS: Fat Emulsion 250 ML IVPB SCH (17:21)
[2022-02-06 17:42] LABS: INR 1.7; Prothrombin Time 19.3 Seconds (9.4-12.1)
[2022-02-06 17:44] LABS: Activated Partial Thrombo Time 34.7 Seconds (26.0-36.0)
[2022-02-06] MEDS: Scopolamine Patch 1.5 MG PATCH.TD72 TD SCH (18:05)
[2022-02-06 19:01] LABS: Bacteria,Urine Few per hpf (None-Few); Bilirubin,Urine Negative (Negative); Blood,Urine Large (Negative); Clarity,Urine Turbid (Clear); Color,Urine Yellow (Yellow); Glucose,Urine (UA) Normal (Normal); Hyaline Casts,Urine Moderate per lpf (None Seen); Ketones,Urine 10 mg/dL (Negative); Leukocyte Esterase,Urine Small (Negative); Mucus,Urine Few per lpf (None-Few); Nitrite,Urine Negative (Negative); Protein,Urine 70 mg/dL (Neg-Trace); RBC,Urine TNTC per hpf (0-3); Specific Gravity,Urine 1.021 (1.010-1.025); Urobilinogen,Urine Normal (Normal); WBC,Urine 30-50 per hpf (0-3)
[2022-02-06] MEDS: Norepinephrine 4 MG/254 ML IV.SOLN IVC SCH ×4 (19:32→20:05)
[2022-02-06] MEDS: Miconazole 2% ointment 141 APPL/141 GM TUBE TP SCH (21:14)
[2022-02-07] MEDS: FentaNYL (PF) 1,000 MCG/100 ML IV.SOLN IVC SCH ×2 (00:10→15:14)
[2022-02-07] MEDS: Artificial Tears SOLN 15 ML BOTTLE BOTH EYES SCH ×5 (03:04→20:23)
[2022-02-07 03:23] LABS: VBG Ionized Calcium 1.13 mmol/L (1.15-1.35)
[2022-02-07 03:30] LABS: Basophils % 0.3 %; Eosinophils # 0.1 K/mcL (0.0-0.6); Eosinophils % 1.9 %; Hematocrit 31.3 % (37.5-50.1); Hemoglobin 10.4 g/dL (12.9-16.9); Immature Granulocytes % 0.7 % (0-4); Immature Platelets 3.3 % (1.1-6.1); Lymphocytes # 0.5 K/mcL (0.6-4.6); Lymphocytes % 6.6 %; Mean Corpuscular HGB Conc 33.2 g/dL (31.6-35.5); Mean Corpuscular Hemoglobin 34.6 pg (28.0-33.3); Mean Platelet Volume 10.1 fL (9.4-12.4); Monocytes # 0.5 K/mcL (0.0-1.3); Monocytes % 6.9 %; Red Blood Count 3.01 M/mcL (4.19-5.50); Red Cell Distribution Width 16.2 % (11.5-14.5); Segmented Neutrophils % 83.6 %
[2022-02-07 03:38] LABS: Neutrophils # 5.9 K/mcL (1.6-8.9); Platelet Count 48 K/mcL (140-400)
[2022-02-07 03:43] LABS: INR 1.9; Prothrombin Time 21.2 Seconds (9.4-12.1)
[2022-02-07 03:46] LABS: Activated Partial Thrombo Time 37.9 Seconds (26.0-36.0); Albumin 2.8 g/dL (3.5-5.7); Albumin/Globulin Ratio 1.5 (1.1-2.2); Bilirubin,Total 1.5 mg/dL (0.3-1.0); Calcium 8.6 mg/dL (8.6-10.3); Globulin 1.9 g/dL (2.4-3.5); Magnesium 1.8 mg/dL (1.6-2.6); Phosphorous 3.1 mg/dL (2.7-4.5); Potassium 4.1 mEq/L (3.5-5.1); Total Protein 4.7 g/dL (6.4-8.9)
[2022-02-07] MEDS: Norepinephrine 4 MG/254 ML IV.SOLN IVC SCH ×3 (04:36→20:34)
[2022-02-07] MEDS: Insulin LISPRO 300 UNITS/3 ML VIAL SUBQ SCH ×3 (05:44→17:24)
[2022-02-07] MEDS: Tiotropium 10 INH DOSE IH SCH (07:14)
[2022-02-07] MEDS: Cefepime HCl 2,000 MG in 0.9 % Sodium Chloride 10 ML IVP SCH ×2 (08:10→20:24)
[2022-02-07] MEDS: Pantoprazole 40 MG VIAL IVP SCH (08:11)
[2022-02-07] MEDS: Chlorhexidine Rinse 15 ML MOUTHWASH MM SCH ×2 (08:11→20:24)
[2022-02-07] MEDS: MetroNIDAZOLE 500 MG/100 ML 500 MG/100 ML BAG IVPB SCH (08:11)
[2022-02-07] MEDS: Miconazole 2% ointment 141 APPL/141 GM TUBE TP SCH ×2 (08:16→20:23)
[2022-02-07] MEDS: Nystatin POWDER 30 GM BOTTLE TP SCH ×3 (08:16→20:24)
[2022-02-07] MEDS ORDERED: D10% in Water 500 ML IVC PRN (12:03)
[2022-02-07] MEDS: Dexmedetomidine HCl 400 MCG/100 ML MLS IVC SCH ×2 (15:08→20:32)
[2022-02-07] MEDS: Clinimix E 5%-15% SOLUTION 2,000 ML with MVI, adult with vitamin K 10 ML IVC SCH ×2 (17:14→20:37)
[2022-02-07] MEDS: Fat Emulsion 250 ML IVPB SCH ×2 (17:15→20:36)
[2022-02-08] MEDS: Artificial Tears SOLN 15 ML BOTTLE BOTH EYES SCH ×7 (03:42→23:27)
[2022-02-08 03:56] LABS: VBG Ionized Calcium 1.22 mmol/L (1.15-1.35)
[2022-02-08 03:58] LABS: Basophils % 0.3 %; Immature Granulocytes % 0.4 % (0-4)
[2022-02-08 04:00] LABS: Eosinophils # 0.1 K/mcL (0.0-0.6); Eosinophils % 1.9 %; Hematocrit 29.4 % (37.5-50.1); Hemoglobin 9.7 g/dL (12.9-16.9); Immature Platelets 3.4 % (1.1-6.1); Lymphocytes # 0.5 K/mcL (0.6-4.6); Lymphocytes % 7.8 %; Mean Corpuscular Hemoglobin 34.2 pg (28.0-33.3); Mean Corpuscular Volume 103.5 fL (83.0-100.0); Mean Platelet Volume 9.5 fL (9.4-12.4); Monocytes # 0.4 K/mcL (0.0-1.3); Monocytes % 6.1 %; Neutrophils # 5.6 K/mcL (1.6-8.9); Red Blood Count 2.84 M/mcL (4.19-5.50); Red Cell Distribution Width 16.4 % (11.5-14.5); Segmented Neutrophils % 83.5 %; White Blood Count 6.7 K/mcL (4.3-11.1)
[2022-02-08 04:05] LABS: Platelet Count 49 K/mcL (140-400)
[2022-02-08 04:14] LABS: Albumin 2.8 g/dL (3.5-5.7); Albumin/Globulin Ratio 1.3 (1.1-2.2); Bilirubin,Total 1.1 mg/dL (0.3-1.0); Calcium 8.4 mg/dL (8.6-10.3); Globulin 2.1 g/dL (2.4-3.5); Magnesium 1.8 mg/dL (1.6-2.6); Potassium 3.8 mEq/L (3.5-5.1); Total Protein 4.9 g/dL (6.4-8.9)
[2022-02-08 04:46] LABS: ABG Base Excess -1 mEq/L (-2 to 3); ABG HCO3 24 mEq/L (21-27); ABG Oxygen Saturation 96 % (95-98); ABG PCO2 36 mmHg (35-45); ABG PH 7.43 pH Units (7.32-7.45); ABG PO2 80 mmHg (85-104); ABG TCO2 25 mEq/L (20-26); Blood Gas Modality ASSIST CONTROL; Blood Gas VT 470 cc
[2022-02-08] MEDS: Norepinephrine 4 MG/254 ML IV.SOLN IVC SCH ×3 (05:36→19:59)
[2022-02-08] MEDS: Insulin LISPRO 300 UNITS/3 ML VIAL SUBQ SCH ×5 (06:09→23:28)
[2022-02-08] MEDS: Tiotropium 10 INH DOSE IH SCH (07:46)
[2022-02-08] MEDS: Chlorhexidine Rinse 15 ML MOUTHWASH MM SCH ×2 (08:00→19:58)
[2022-02-08] MEDS: FentaNYL (PF) 1,000 MCG/100 ML IV.SOLN IVC SCH (08:32)
[2022-02-08] MEDS: Dexmedetomidine HCl 400 MCG/100 ML MLS IVC SCH ×2 (08:33→10:35)
[2022-02-08] MEDS: Pantoprazole 40 MG VIAL IVP SCH (08:39)
[2022-02-08] MEDS: Cefepime HCl 2,000 MG in 0.9 % Sodium Chloride 10 ML IVP SCH ×2 (08:39→19:58)
[2022-02-08 10:47] LABS: INR 1.8; Prothrombin Time 19.9 Seconds (9.4-12.1)
[2022-02-08] MEDS: Nystatin POWDER 30 GM BOTTLE TP SCH ×3 (10:48→19:58)
[2022-02-08] MEDS: Miconazole 2% ointment 141 APPL/141 GM TUBE TP SCH ×2 (11:48→19:58)
[2022-02-08 12:06] LABS: Calcium 8.3 mg/dL (8.6-10.3); Potassium 3.9 mEq/L (3.5-5.1)
[2022-02-08] MEDS ORDERED: Clinimix E 5%-20% SOLUTION 2,000 ML with MVI, adult with vitamin K 10 ML IVC SCH (17:00)
[2022-02-08] MEDS: Fat Emulsion 250 ML IVPB SCH (17:54)
[2022-02-08 22:20] LABS: INR 1.7; Prothrombin Time 18.6 Seconds (9.4-12.1)
[2022-02-09] MEDS: Artificial Tears SOLN 15 ML BOTTLE BOTH EYES SCH ×5 (03:05→19:26)
[2022-02-09 04:05] LABS: ABG Base Excess 0 mEq/L (-2 to 3); ABG HCO3 25 mEq/L (21-27); ABG Oxygen Saturation 96 % (95-98); ABG PCO2 44 mmHg (35-45); ABG PH 7.36 pH Units (7.32-7.45); ABG PO2 82 mmHg (85-104); ABG TCO2 26 mEq/L (20-26); Blood Gas Modality ASSIST CONTROL; Blood Gas VT 470 cc
[2022-02-09 04:35] LABS: Basophils % 0.2 %; Hemoglobin 8.8 g/dL (12.9-16.9); Mean Corpuscular Volume 105.1 fL (83.0-100.0)
[2022-02-09] MEDS: Norepinephrine 4 MG/254 ML IV.SOLN IVC SCH ×2 (04:35→12:32)
[2022-02-09 04:37] LABS: Eosinophils # 0.1 K/mcL (0.0-0.6); Eosinophils % 1.9 %; Hematocrit 26.9 % (37.5-50.1); Immature Granulocytes % 0.6 % (0-4); Immature Platelets 4.2 % (1.1-6.1); Lymphocytes # 0.5 K/mcL (0.6-4.6); Lymphocytes % 7.5 %; Mean Corpuscular HGB Conc 32.7 g/dL (31.6-35.5); Mean Corpuscular Hemoglobin 34.4 pg (28.0-33.3); Mean Platelet Volume 10.2 fL (9.4-12.4); Monocytes # 0.4 K/mcL (0.0-1.3); Monocytes % 6.7 %; Red Blood Count 2.56 M/mcL (4.19-5.50); Red Cell Distribution Width 16.4 % (11.5-14.5); Segmented Neutrophils % 83.1 %; White Blood Count 6.2 K/mcL (4.3-11.1)
[2022-02-09 04:40] LABS: Neutrophils # 5.2 K/mcL (1.6-8.9); Platelet Count 45 K/mcL (140-400)
[2022-02-09 04:42] LABS: INR 1.7; Prothrombin Time 18.8 Seconds (9.4-12.1)
[2022-02-09 05:03] LABS: Albumin 2.7 g/dL (3.5-5.7); Albumin/Globulin Ratio 1.3 (1.1-2.2); Bilirubin,Total 1.1 mg/dL (0.3-1.0); Calcium 8.3 mg/dL (8.6-10.3); Globulin 2.1 g/dL (2.4-3.5); Phosphorous 3.1 mg/dL (2.7-4.5); Potassium 3.9 mEq/L (3.5-5.1); Total Protein 4.8 g/dL (6.4-8.9)
[2022-02-09] MEDS: Insulin LISPRO 300 UNITS/3 ML VIAL SUBQ SCH ×3 (06:14→17:59)
[2022-02-09] MEDS: Dexmedetomidine HCl 400 MCG/100 ML MLS IVC SCH (07:30)
[2022-02-09] MEDS: Tiotropium 10 INH DOSE IH SCH (07:45)
[2022-02-09] MEDS: Pantoprazole 40 MG VIAL IVP SCH (08:20)
[2022-02-09] MEDS: Cefepime HCl 2,000 MG in 0.9 % Sodium Chloride 10 ML IVP SCH ×2 (08:20→19:25)
[2022-02-09] MEDS: Chlorhexidine Rinse 15 ML MOUTHWASH MM SCH ×2 (08:20→19:26)
[2022-02-09] MEDS: Nystatin POWDER 30 GM BOTTLE TP SCH ×3 (08:21→19:26)
[2022-02-09] MEDS: Miconazole 2% ointment 141 APPL/141 GM TUBE TP SCH ×2 (08:21→19:26)
[2022-02-09 10:42] LABS: Basophils % 0.1 %; Eosinophils # 0.1 K/mcL (0.0-0.6); Eosinophils % 1.3 %; Hematocrit 27.5 % (37.5-50.1); Hemoglobin 9.2 g/dL (12.9-16.9); Immature Granulocytes % 0.5 % (0-4); Lymphocytes # 0.4 K/mcL (0.6-4.6); Lymphocytes % 5.3 %; Mean Corpuscular HGB Conc 33.5 g/dL (31.6-35.5); Mean Corpuscular Volume 104.6 fL (83.0-100.0); Mean Platelet Volume 10.2 fL (9.4-12.4); Monocytes # 0.4 K/mcL (0.0-1.3); Monocytes % 5.3 %; Red Blood Count 2.63 M/mcL (4.19-5.50); Red Cell Distribution Width 16.3 % (11.5-14.5); Segmented Neutrophils % 87.5 %
[2022-02-09 10:44] LABS: Platelet Count 41 K/mcL (140-400)
[2022-02-09] MEDS ORDERED: Furosemide 40 MG/4 ML VIAL IVP ONE (11:00)
[2022-02-09 11:33] LABS: ANA IgG by ELISA NONE DETECTED (None Detected)
[2022-02-09] MEDS ORDERED: Chloraseptic Spray 177 ML BOTTLE MM PRN (14:20)
[2022-02-09] MEDS ORDERED: Amiodarone Premix 360 MG/200 ML BAG IVC ONE (16:06)
[2022-02-09] MEDS ORDERED: Amiodarone Premix 150 MG/100 ML BAG IVPB ONE (16:06)
[2022-02-09] MEDS: Glycopyrrolate 0.2 MG/ML VIAL IVP PRN (16:35)
[2022-02-09] MEDS: Scopolamine Patch 1.5 MG PATCH.TD72 TD SCH (16:35)
[2022-02-09] MEDS: Fat Emulsion 250 ML IVPB SCH (16:41)
[2022-02-09] MEDS ORDERED: Clinimix E 5%-20% SOLUTION 2,000 ML with MVI, adult with vitamin K 10 ML IVC SCH (17:00)
[2022-02-09 18:10] LABS: Calcium 8.4 mg/dL (8.6-10.3); Potassium 4.2 mEq/L (3.5-5.1)
[2022-02-09] MEDS: Amiodarone Premix 360 MG/200 ML BAG IVC SCH (23:30)
[2022-02-10 05:21] LABS: ABG Base Excess -4 mEq/L (-2 to 3); ABG HCO3 27 mEq/L (21-27); ABG Oxygen Saturation 92 % (95-98); ABG PCO2 84 mmHg (35-45); ABG PH 7.11 pH Units (7.32-7.45); ABG PO2 89 mmHg (85-104); ABG TCO2 29 mEq/L (20-26); Blood Gas Modality 15LPM
[2022-02-10 06:39] LABS: Basophils % 0.3 %; Eosinophils % 0.9 %; Mean Corpuscular Volume 107.2 fL (83.0-100.0)
[2022-02-10 06:41] LABS: Eosinophils # 0.1 K/mcL (0.0-0.6); Hematocrit 29.6 % (37.5-50.1); Hemoglobin 9.3 g/dL (12.9-16.9); Immature Granulocytes % 0.7 % (0-4); Immature Platelets 2.9 % (1.1-6.1); Lymphocytes # 0.4 K/mcL (0.6-4.6); Lymphocytes % 5.1 %; Mean Corpuscular HGB Conc 31.4 g/dL (31.6-35.5); Mean Corpuscular Hemoglobin 33.7 pg (28.0-33.3); Mean Platelet Volume 9.8 fL (9.4-12.4); Monocytes # 0.5 K/mcL (0.0-1.3); Monocytes % 6.5 %; Red Blood Count 2.76 M/mcL (4.19-5.50); Red Cell Distribution Width 16.2 % (11.5-14.5); Segmented Neutrophils % 86.5 %; White Blood Count 7.7 K/mcL (4.3-11.1)
[2022-02-10 06:46] LABS: Neutrophils # 6.7 K/mcL (1.6-8.9); Platelet Count 78 K/mcL (140-400)
[2022-02-10 06:51] LABS: INR 1.5; Prothrombin Time 16.8 Seconds (9.4-12.1)
[2022-02-10 07:06] LABS: Albumin/Globulin Ratio 1.4 (1.1-2.2); Bilirubin,Total 0.8 mg/dL (0.3-1.0); Calcium 8.3 mg/dL (8.6-10.3); Globulin 2.2 g/dL (2.4-3.5); Magnesium 1.9 mg/dL (1.6-2.6); Phosphorous 4.2 mg/dL (2.7-4.5); Potassium 4.4 mEq/L (3.5-5.1); Total Protein 5.2 g/dL (6.4-8.9)
[2022-02-10] MEDS: Artificial Tears SOLN 15 ML BOTTLE BOTH EYES SCH ×6 (07:17→20:01)
[2022-02-10] MEDS: Insulin LISPRO 300 UNITS/3 ML VIAL SUBQ SCH ×4 (07:23→18:32)
[2022-02-10 07:55] LABS: ABG Base Excess -2 mEq/L (-2 to 3); ABG HCO3 25 mEq/L (21-27); ABG Oxygen Saturation 98 % (95-98); ABG PCO2 53 mmHg (35-45); ABG PH 7.29 pH Units (7.32-7.45); ABG PO2 111 mmHg (85-104); ABG TCO2 27 mEq/L (20-26); Blood Gas Modality AVAPS; Blood Gas VT 500 cc
[2022-02-10] MEDS: Dexmedetomidine HCl 400 MCG/100 ML MLS IVC SCH (08:46)
[2022-02-10] MEDS ORDERED: Furosemide 20 MG/2 ML VIAL IVP ONE (09:15)
[2022-02-10] MEDS: Tiotropium 10 INH DOSE IH SCH (09:31)
[2022-02-10 09:44] LABS: Thrombin Time 18.3 sec (14.7-19.5)
[2022-02-10] MEDS: Norepinephrine 4 MG/254 ML IV.SOLN IVC SCH ×4 (10:04→19:28)
[2022-02-10] MEDS: Cefepime HCl 2,000 MG in 0.9 % Sodium Chloride 10 ML IVP SCH ×2 (10:22→20:00)
[2022-02-10] MEDS: Chlorhexidine Rinse 15 ML MOUTHWASH MM SCH ×2 (10:23→20:00)
[2022-02-10] MEDS: Pantoprazole 40 MG VIAL IVP SCH (10:24)
[2022-02-10] MEDS: Miconazole 2% ointment 141 APPL/141 GM TUBE TP SCH ×2 (10:25→20:02)
[2022-02-10] MEDS ORDERED: Amiodarone Premix 360 MG/200 ML BAG IVC ONE (11:45)
[2022-02-10] MEDS: Amiodarone Premix 360 MG/200 ML BAG IVC SCH (11:59)
[2022-02-10] MEDS: Nystatin POWDER 30 GM BOTTLE TP SCH ×3 (12:00→20:01)
[2022-02-10] MEDS ORDERED: Insulin DETEMIR 100 UNIT/ML X5UNITS SUBQ SCH (12:00)
[2022-02-10] MEDS ORDERED: *HR* Metoprolol 5 MG/5 ML VIAL IVP PRN (15:30)
[2022-02-10 16:10] VITALS: TEMP 98.8
[2022-02-10 16:36] VITALS: O2SAT 100
[2022-02-10] MEDS ORDERED: Clinimix E 5%-20% SOLUTION 2,000 ML with MVI, adult with vitamin K 10 ML IVC SCH (17:00)
[2022-02-10] MEDS ORDERED: *HR* Metoprolol 5 MG/5 ML VIAL IVP SCH (18:00)
[2022-02-10] MEDS: Nystatin SUSP 5 ML UD.LIQ PO SCH ×2 (18:16→20:02)
[2022-02-10] MEDS: Fat Emulsion 250 ML IVPB SCH (18:16)
[2022-02-10 21:39] VITALS: BP 83/50; PULSE 62
[2022-02-12 07:02] LABS: Ristocetin Cofactor-VWF Active 529 % (51-215); Von Willebrand Factor Ag 424 % (52-214)
[2022-02-12 07:03] LABS: Thrombin Time 17.2 sec (14.7-19.5)
[2022-02-12 23:33] LABS: APTT (LE Anticoag) 58 sec (32-48); Diluted Russell Viper Venom 39 sec (33-44); LE Coag APTT Mixing 46 sec (32-48); PT (LE-Anticoag) 20.7 sec (12.0-15.5); Thrombin Time 18.4 sec (14.7-19.5)
== END 2022-02-10 23:59 | disposition other institution (70) | DRG 871 ==
LOC: EMEROOARM 19:11 → ICNU 01-31 00:48 → 2ANU 02-02 18:03 → ICNU 02-03 18:29
PROVIDERS: ADMIT Internal Medicine; ATTEND Internal Medicine